=== PATIENT | female | born 1955 | race Caucasian/White ===

== ENCOUNTER 2024-03-05 12:51 | Emergency (ER) | payer OTHER, MEDICAID ==
[~2024-03-05] VITALS: Ht 167.6 cm; Wt 77.1 kg
[2024-03-05] MEDS: KETOROLAC TROMETHAMINE 30 MG VIAL IVP ONE (14:48)
[2024-03-05 14:54] VITALS: BP_SYST 99; PULSE 80; RESP 18; TEMP 97.4; O2SAT 98
[2024-03-05 15:09] LABS: BASOPHILS % (AUTO) 0.5 % (0.0-2.0); EOSINOPHILS # (AUTO) 0.3 K/uL (0.0-0.4); EOSINOPHILS % (AUTO) 5.1 % (0.0-4.0); HEMATOCRIT 42.9 % (36-48); HEMOGLOBIN 14.2 g/dL (12.0-16.0); LYMPHOCYTES # (AUTO) 1.1 K/uL (1.0-5.5); LYMPHOCYTES % (AUTO) 17.1 % (20.5-51.5); MEAN CORPUSCULAR HEMOGLOBIN 30 pg (27-31); MEAN CORPUSCULAR HGB CONC 33 % (32-36); MEAN CORPUSCULAR VOLUME 91 fL (79.0-98.0); MONOCYTES # (AUTO) 0.7 K/uL (0.0-1.0); MONOCYTES % (AUTO) 11.3 % (1.7-9.3); PLATELET COUNT (AUTO) 165 K/uL (130-430); RED BLOOD CELL COUNT(AUTO) 4.73 MIL/uL (4.2-6.2); RED CELL DISTRIBUTION WIDTH 13.5 % (9.0-15.0); WHITE BLOOD COUNT (AUTO) 6.1 K/uL (4.8-10.8)
[2024-03-05 15:27] LABS: BILIRUBIN,URINE NEGATIVE (NEGATIVE); BLOOD, URINE NEGATIVE (NEGATIVE); CLARITY/URINE CLEAR (CLEAR); COLOR,URINE YELLOW (YELLOW); GLUCOSE,URINE NEGATIVE (NEGATIVE); KETONES,URINE TRACE (NEGATIVE); LEUKOCYTE ESTERASE ,URINE NEGATIVE (NEGATIVE); NITRITE, URINE NEGATIVE (NEGATIVE); PROTEIN URINE NEGATIVE (NEGATIVE); UROBILINOGEN,URINE 0.2 (0.2-1.0)
[2024-03-05 15:34] LABS: ALBUMIN 3.5 g/dL (3.4-4.8); BILIRUBIN,DIRECT 0.1 mg/dL (0.0-0.3); CALCIUM 9.6 mg/dL (8.4-11.0); CREATININE 1.07 mg/dL (0.55-1.30); POTASSIUM 4.3 mmol/L (3.5-5.1); TOTAL BILIRUBIN 0.3 mg/dL (0.0-1.0); TOTAL PROTEIN, SERUM 6.8 g/dL (6.4-8.3)
[2024-03-05] MEDS: KETOROLAC TROMETHAMINE 15 MG VIAL IVP ONE (20:01)
[2024-03-05] MEDS ORDERED: DICL20GE TP (20:19)
[2024-03-05] MEDS ORDERED: LIDO1ADH22 TP (20:19)
[2024-03-05] MEDS: LIDOCAINE PATCH 5% 1 EA TP ONE (20:58)
[2024-03-05 21:40] VITALS: BP_SYST 104; PULSE 71; RESP 20; TEMP 97.4; O2SAT 95
[2024-03-06] MEDS ORDERED: LIDO1ADH22 TP (13:55)
[2024-03-06] MEDS ORDERED: NA P133E24 RC (13:55)
[2024-03-06] MEDS ORDERED: RISP-30 PO (13:55)
[2024-03-06] MEDS ORDERED: GABA300T28 PO (13:55)
[2024-03-06] MEDS ORDERED: DICL100G60 TP (13:55)
[2024-03-06] MEDS ORDERED: MOM PO (13:55)
[2024-03-06] MEDS ORDERED: ACET325T53 PO (13:55)
[2024-03-06] MEDS ORDERED: ZIPR60CA7 PO (13:55)
[2024-03-06] MEDS ORDERED: IBUP-1970 PO (13:55)
[2024-03-06] MEDS ORDERED: ZIPR80CA9 PO (16:12)
== END 2024-03-05 21:40 | disposition home or self-care (01) ==
LOC: SED 12:51
DX: M48.56XA Collapsed vertebra, not elsewhere classified, lumbar region, initial encounter for fracture (principal); F32.A Depression, unspecified; F41.9 Anxiety disorder, unspecified; F20.9 Schizophrenia, unspecified; Z88.6 Allergy status to analgesic agent
CPT/HCPCS: 99285; 96374; 80076; 80048; 81001; 83690; 85025; 36415; 72100; 96376; 81003; J1885 ×2

== ENCOUNTER 2024-03-06 11:36 | Inpatient (IN) | payer OTHER, MEDICAID ==
[~2024-03-06] VITALS: Ht 165.1 cm; Wt 81.6 kg
[~2024-03-06 11:36] MED LIST: DICL20GE TP; LIDO1ADH22 TP
[2024-03-06 11:44] VITALS: BP_SYST 98; PULSE 97; RESP 18; TEMP 97.6; O2SAT 98
[2024-03-06] MEDS ORDERED: NA P133E24 RC (13:55)
[2024-03-06] MEDS ORDERED: LIDO1ADH22 TP (13:55)
[2024-03-06] MEDS ORDERED: MOM PO (13:55)
[2024-03-06] MEDS ORDERED: DICL100G60 TP (13:55)
[2024-03-06] MEDS ORDERED: ACET325T53 PO (13:55)
[2024-03-06] MEDS ORDERED: GABA300T28 PO (13:55)
[2024-03-06] MEDS ORDERED: IBUP-1970 PO (13:55)
[2024-03-06] MEDS ORDERED: RISP-30 PO (13:55)
[2024-03-06] MEDS ORDERED: ZIPR60CA7 PO (13:55)
[2024-03-06] MEDS ORDERED: SODIUM PHOSPHATE,MONO-DIBASIC 133 ML ENEMA RC PRN (14:15)
[2024-03-06 15:56] VITALS: O2SAT 95
[2024-03-06] MEDS ORDERED: ZIPR80CA9 PO (16:12)
[2024-03-06] MEDS ORDERED: NON-FORMULARY MEDICATION (Diclofenac Sodium 1 APPLIC) TP SCH (17:00)
[2024-03-06 17:31] VITALS: BP_SYST 109; PULSE 60; RESP 16; TEMP 97.2; O2SAT 95
[2024-03-06] MEDS ORDERED: ACETAMINOPHEN 325 MG TABLET PO PRN (18:00)
[2024-03-06] MEDS: KETOROLAC TROMETHAMINE 15 MG VIAL IVP SCH (19:02)
[2024-03-06 20:10] VITALS: BP_SYST 99; PULSE 72; TEMP 96.8
[2024-03-06] MEDS: GABAPENTIN 300 MG CAPSULE PO SCH (21:20)
[2024-03-06] MEDS: risperiDONE 1 MG TABLET (RisperDAL) PO SCH (21:20)
[2024-03-07 00:21] VITALS: BP_SYST 102; PULSE 64; RESP 16; TEMP 97.5; O2SAT 95
[2024-03-07] MEDS: IBUPROFEN 800 MG TABLET PO PRN (01:48)
[2024-03-07 04:16] VITALS: BP_SYST 95; PULSE 68; RESP 16; TEMP 97.8; O2SAT 96
[2024-03-07 08:00] VITALS: BP_SYST 114; PULSE 60; RESP 16; TEMP 98.2; O2SAT 95
[2024-03-07 09:00] VITALS: O2SAT 95
[2024-03-07] MEDS: BENZTROPINE MESYLATE 1 MG TABLET PO SCH (11:09)
[2024-03-07] MEDS: ENOXAPARIN SODIUM 40 MG/0.4 ML SYRINGE SUBCUT SCH (11:10)
[2024-03-07] MEDS: ZIPRASIDONE HCL 20 MG CAPSULE (GEODON) PO SCH (11:12)
[2024-03-07] MEDS: LIDOCAINE PATCH 5% 1 EA TP SCH (11:12)
[2024-03-07 19:00] VITALS: BP_SYST 103; PULSE 70; RESP 16; TEMP 97.7; O2SAT 96
[2024-03-08 06:05] LABS: EOSINOPHILS # (AUTO) 0.4 K/uL (0.0-0.4); EOSINOPHILS % (AUTO) 7.6 % (0.0-4.0); HEMOGLOBIN 12.7 g/dL (12.0-16.0); LYMPHOCYTES % (AUTO) 21.5 % (20.5-51.5); MEAN CORPUSCULAR HEMOGLOBIN 30 pg (27-31); MEAN CORPUSCULAR HGB CONC 33 % (32-36); MEAN CORPUSCULAR VOLUME 91 fL (79.0-98.0); MONOCYTES # (AUTO) 0.6 K/uL (0.0-1.0); NEUTROPHILS # (AUTO) 2.7 K/uL (1.8-7.7); NEUTROPHILS % (AUTO) 57.9 % (40.0-70.0); PLATELET COUNT (AUTO) 138 K/uL (130-430); RED CELL DISTRIBUTION WIDTH 13.5 % (9.0-15.0); WHITE BLOOD COUNT (AUTO) 4.7 K/uL (4.8-10.8)
[2024-03-08 06:35] LABS: ALBUMIN 2.8 g/dL (3.4-4.8); CALCIUM 9.3 mg/dL (8.4-11.0); CREATININE 0.92 mg/dL (0.55-1.30); PHOSPHORUS 3.7 mg/dL (2.7-4.5); POTASSIUM 4.5 mmol/L (3.5-5.1); TOTAL BILIRUBIN 0.4 mg/dL (0.0-1.0); TOTAL PROTEIN, SERUM 5.6 g/dL (6.4-8.3)
[2024-03-08 08:00] VITALS: BP_SYST 117; PULSE 63; RESP 16; TEMP 97.9; O2SAT 95
[2024-03-08 12:25] VITALS: BP_SYST 93; PULSE 72; RESP 16; TEMP 98.2; O2SAT 96
[2024-03-08 16:00] VITALS: BP_SYST 90; PULSE 52; RESP 14; TEMP 98.2; O2SAT 95
[2024-03-08] MEDS: KCL 20 mEq in D5/0.45NS 1000mL 1,000 ML IV SCH (18:10)
[2024-03-08 20:00] VITALS: BP_SYST 90; PULSE 71; RESP 17; TEMP 97.7; O2SAT 95
[2024-03-08] MEDS: BENZTROPINE MESYLATE 1 MG TABLET PO SCH (20:34)
[2024-03-09] VITALS (9 sets, daily range): BP systolic 98–101; PULSE 59–68; RESP 17–24; TEMP 96.9–98.1; O2SAT 95–100
[2024-03-09] MEDS: LevALBUTEROL HCL 1.25 MG/0.5 ML *CONC.* VIAL.NEB (XOPENEX CONC.) INH SCH (08:45)
[2024-03-09] MEDS: MILK OF MAGNESIA 30 ML UDC PO PRN (10:30)
== END 2024-03-09 16:00 | DRG 543 ==
LOC: SED 11:36 → SMU 11:44
PROVIDERS: ADMIT Family Medicine; ATTEND Family Medicine
DX: M48.56XA Collapsed vertebra, not elsewhere classified, lumbar region, initial encounter for fracture (principal); E44.0 Moderate protein-calorie malnutrition; M81.0 Age-related osteoporosis without current pathological fracture; M48.54XA Collapsed vertebra, not elsewhere classified, thoracic region, initial encounter for fracture; F20.9 Schizophrenia, unspecified; Z88.5 Allergy status to narcotic agent; Z79.899 Other long term (current) drug therapy; Z88.8 Allergy status to other drugs, medicaments and biological substances; Z68.30 Body mass index [BMI] 30.0-30.9, adult; J45.909 Unspecified asthma, uncomplicated
CPT/HCPCS: 36415; 72148; 80053; 82306; 83735; 84100; 85025; 87081; 94640; 94760; 97116-GP; 97530-GP; 99285; J1650; J1885; J7612